=== PATIENT | male | born 1960 | race Caucasian/White ===

== ENCOUNTER 2016-07-12 15:35 | Emergency (ER) | payer BC ==
[2016-07-12 16:48] VITALS: BP 141/73
--- NOTE | 2016-07-12 16:51 | UC ---
Eye Complaint HPI - HPI Summary HPI Summary: "I've got a pink eye thin happening, I think." Nasal congestion, sore throat, and "generally not feeling well" for two days. Left eye crusting, discharge, erythema, and itching since this morning. Patient denies contact lens use or injury. Patient is self employed. PCP Marc. Green discharge throughout the day as well [ End ] - History of Current Complaint Chief Complaint: UCEye Stated Complaint: PINK EYE Time Seen by Provider: 07/12/16 16:49 Hx Obtained From: Patient Onset/Duration: Sudden Onset Timing: Constant Severity Initially: Mild Severity Currently: Mild Aggravating Factor(s): Nothing Alleviating Factor(s): Nothing Associated Signs And Symptoms: Positive: Drainage (Purulent) - Risk Factors Penetrating Injury Risk Factor: Negative Globe Rupture Risk Factors: Negative Acute Glaucoma Risk Factors: Negative - Allergies/Home Medications Allergies/Adverse Reactions: Allergies Allergy/AdvReac Type Severity Reaction Status Date / Time No Known Allergies Allergy Verified 07/12/16 16:42 PMH/Surg Hx/FS Hx/Imm Hx Previously Healthy: Yes Cardiovascular History Of: Reports: Cardiac Disorders - Dyslipidemia, Hypertension - Surgical History Surgical History: None - Social History Occupation: Employed Full-time Lives: With Family Alcohol Use: None Substance Use Type: None Smoking Status (MU): Never Smoked Tobacco - Immunization History Most Recent Influenza Vaccination: February 2016 Review of Systems Constitutional: Negative Skin: Negative Eyes: Drainage ENT: Negative Respiratory: Negative Cardiovascular: Negative Gastrointestinal: Negative Genitourinary: Negative Motor: Negative Neurovascular: Negative Musculoskeletal: Negative Neurological: Negative Psychological: Negative All Other Systems Reviewed And Are Negative: Yes Physical Exam Triage Information Reviewed: Yes Appearance: Well-Appearing, No Pain Distress, Well-Nourished Vital Signs: Initial Vital Signs Temp 98.4 F 07/12/16 16:40 Pulse 61 07/12/16 16:40 Resp 16 07/12/16 16:40 BP 141/73 07/12/16 16:40 Pulse Ox 97 07/12/16 16:40 Vital Signs Reviewed: Yes Eyes: Positive: Conjunctiva Inflamed, Discharge - right ENT Exam: Normal ENT: Positive: Normal ENT inspection, Hearing grossly normal, Pharynx normal Dental Exam: Normal Neck exam: Normal Respiratory Exam: Normal Cardiovascular Exam: Normal Musculoskeletal Exam: Normal Neurological Exam: Normal Psychological Exam: Normal Eye Complaint Course/Dx - Differential Dx/Diagnosis Differential Diagnosis/HQI/PQRI: Conjunctivitis Provider Diagnoses: Conjunctivitis Discharge - Discharge Plan Condition: Good Disposition: HOME Prescriptions: Polymyx/Trimethoprim OPTH* [Polytrim OPHTH*] 1 drop RIGHT EYE Q3H #1 btl Patient Education Materials: Conjunctivitis (ED) Referrals: Rosetta Jackson MD [Primary Care Provider] - 3 Days
== END 2016-07-12 17:10 | disposition home or self-care (01) ==
LOC: UCCORT 15:35
DX: H10.32 Unspecified acute conjunctivitis, left eye (principal)
CPT/HCPCS: 99202; G0463

== ENCOUNTER 2016-09-17 16:21 | Emergency (ER) | payer BC ==
[2016-09-17 16:53] VITALS: BP 137/75
--- NOTE | 2016-09-17 17:02 | UC ---
Respiratory Complaint HPI - History of Current Complaint Chief Complaint: UCGeneralIllness Stated Complaint: UPPER RESPIRATORY Time Seen by Provider: 09/17/16 16:55 Hx Obtained From: Patient Onset/Duration: Gradual Onset, Lasting Days - 12, Still Present Timing: Constant Character: Cough: Productive - initially green purulent but now no sputum Associated Signs And Symptoms: Positive: Dyspnea - at night with congestion and coughing., Fever, Wheezing, URI, Nasal Congestion, Hoarseness, Sinus Discomfort - Risk Factors Pulmonary Embolism Risk Factors: Negative Cardiac Risk Factors: Family History Pseudomonas Risk Factors: Negative Tuberculosis Risk Factors: Negative - Allergies/Home Medications Allergies/Adverse Reactions: Allergies Allergy/AdvReac Type Severity Reaction Status Date / Time No Known Allergies Allergy Verified 09/17/16 16:53 Home Medications: Home Medications Pseudoephedrine-Guaifenesin [Mucinex D 60-600 mg] 1 tab PO 09/17/16 [History] PMH/Surg Hx/FS Hx/Imm Hx Cardiovascular History Of: Reports: Cardiac Disorders - Dyslipidemia, Hypertension - Surgical History Surgical History: Yes Surgery Procedure, Year, and Place: LEFT TKA - Family History Known Family History: Positive: Cardiac Disease, Hypertension, Diabetes - Social History Occupation: Employed Full-time Lives: With Family Alcohol Use: Weekly Substance Use Type: None Smoking Status (MU): Never Smoked Tobacco Have You Smoked in the Last Year: No - Immunization History Most Recent Influenza Vaccination: February 2016 Review of Systems Constitutional: Fever Respiratory: Shortness Of Breath, Cough All Other Systems Reviewed And Are Negative: Yes Physical Exam Triage Information Reviewed: Yes Appearance: No Pain Distress, Well-Nourished, Ill-Appearing Vital Signs: Initial Vital Signs Temp 98 F 09/17/16 16:48 Pulse 64 09/17/16 16:48 Resp 16 09/17/16 16:48 BP 137/75 09/17/16 16:48 Pulse Ox 96 09/17/16 16:48 Vital Signs Reviewed: Yes Eyes: Positive: Conjunctiva Clear ENT: Positive: Pharynx normal, Nasal congestion, TMs normal Neck exam: Normal Neck: Positive: No Lymphadenopathy Respiratory: Positive: Wheezing - mild diffuse expiratory wheezes. Cardiovascular Exam: Normal Musculoskeletal Exam: Normal Neurological Exam: Normal Psychological Exam: Normal Skin Exam: Normal UC Diagnostic Evaluation - Laboratory O2 Sat by Pulse Oximetry: 96 Respiratory Course/Dx - Differential Dx/Diagnosis Differential Diagnosis/HQI/PQRI: Asthma, Lower Resp Infection, Sinusitis Provider Diagnoses: Acute URI. Acute bronchospasm Discharge - Discharge Plan Condition: Stable Disposition: HOME Prescriptions: Albuterol HFA INHALER* [Ventolin HFA Inhaler*] 2 puff INH Q4H PRN #1 mdi PRN Reason: Wheezing predniSONE TAB* [Deltasone TAB*] 20 mg PO DAILY #18 tab Patient Education Materials: Upper Respiratory Infection (ED), Bronchospasm (ED ), Prednisone (By mouth), How to Use a Metered-Dose Inhaler (ED)
== END 2016-09-17 17:22 | disposition home or self-care (01) ==
LOC: UCCORT 16:21
DX: J06.9 Acute upper respiratory infection, unspecified (principal); J98.01 Acute bronchospasm; E78.5 Hyperlipidemia, unspecified; I10 Essential (primary) hypertension
CPT/HCPCS: 99212; G0463

== ENCOUNTER 2019-07-03 12:13 | Emergency (ER) | payer BC ==
[2019-07-03 13:11] VITALS: BP 134/69
--- NOTE | 2019-07-03 13:32 | UC ---
Respiratory Complaint HPI - HPI Summary HPI Summary: 58-year-old male comes in with a chief complaint of cough. 2 weeks ago patient reports she had influenza-like illness with fevers chills and chest congestion. Since that time the fevers of gone but is continuing to have a cough. Coughing is worse when he gets exposed to cold air. In the past he's used Mucinex DM which did help with the cough. No history of asthma but he has used an albuterol inhaler before when his had bronchitis with bronchospasm. - History of Current Complaint Chief Complaint: UCRespiratory Stated Complaint: COUGH Time Seen by Provider: 07/03/19 13:16 Pain Intensity: 0 - Allergies/Home Medications Allergies/Adverse Reactions: Allergies Allergy/AdvReac Type Severity Reaction Status Date / Time No Known Allergies Allergy Verified 07/03/19 13:08 Home Medications: Home Medications Aspirin [Aspirin Adult Low Dose 81 MG] 81 mg PO DAILY 02/28/17 [History Confirmed 07/03/19] Atenolol TAB* [Tenormin TAB* 50 MG] 25 mg PO DAILY 02/28/17 [History Confirmed 07/03/19] Linagliptin (NF) [Tradjenta (NF)] 5 mg PO DAILY 02/28/17 [History Confirmed ] Rosuvastatin Calcium [Crestor] 20 mg PO DAILY 02/28/17 [History Confirmed ] glipiZIDE TAB.XL* [Glucotrol XL*] 10 mg PO DAILY 02/28/17 [History Confirmed ] lisinopriL [Prinivil TAB 20 mg] 20 mg PO DAILY 02/28/17 [History Confirmed 07/03] metFORMIN* [Glucophage 1000 MG TAB *] 1,000 mg PO BID 02/28/17 [History Confirmed 07/03/19] Albuterol HFA INHALER* [Ventolin HFA Inhaler*] 2 puff INH Q4H PRN #1 mdi [Rx] DOXYcycline CAP(*) [DOXYcycline 100MG CAP(*)] 100 mg PO BID #20 cap 07/03/19 [Rx ] PMH/Surg Hx/FS Hx/Imm Hx Previously Healthy: Yes Endocrine History: Diabetes, Dyslipidemia Cardiovascular History: Hypertension - Surgical History Surgical History: Yes Surgery Procedure, Year, and Place: LEFT TKA - Family History Known Family History: Positive: Cardiac Disease, Hypertension, Diabetes - Social History Alcohol Use: Occasionally Substance Use Type: None Smoking Status (MU): Never Smoked Tobacco Have You Smoked in the Last Year: No - Immunization History Most Recent Influenza Vaccination: February 2016 Review of Systems All Other Systems Reviewed And Are Negative: Yes Constitutional: Positive: Fever, Other - see hpi Skin: Positive: Negative Eyes: Positive: Negative ENT: Positive: Nasal Discharge Respiratory: Positive: Cough, Other - see hpi Cardiovascular: Positive: Negative Gastrointestinal: Positive: Negative Motor: Positive: Negative Neurovascular: Positive: Negative Musculoskeletal: Positive: Negative Neurological/Mental Status: Positive: Negative Psychological: Positive: Negative Is Patient Immunocompromised?: No Physical Exam Triage Information Reviewed: Yes Appearance: Well-Appearing, No Pain Distress Vital Signs: Initial Vital Signs Temp 98.5 F 07/03/19 13:08 Pulse 84 07/03/19 13:08 Resp 16 07/03/19 13:08 BP 134/69 07/03/19 13:08 Pulse Ox 97 07/03/19 13:08 Vital Signs Reviewed: Yes Eye Exam: Normal Eyes: Positive: Conjunctiva Clear ENT: Positive: Pharynx normal, Nasal drainage, TMs normal Neck: Positive: Supple Respiratory: Positive: No respiratory distress, Rhonchi Cardiovascular: Positive: RRR Musculoskeletal: Positive: Strength Intact, ROM Intact Neurological: Positive: Alert, Muscle Tone Normal Psychological: Positive: Age Appropriate Behavior Skin Exam: Normal Respiratory Course/Dx - Course Course Of Treatment: Discussed getting a chest x-ray with the patient. No chest x-ray at this time. Will consider chest x-ray if not improved. At this time the plan is to treat with antibiotics and albuterol inhaler and [id number] cough medicine and get reevaluated if not completely improved. - Differential Dx/Diagnosis Provider Diagnosis: Bronchitis with bronchospasm Discharge ED - Sign-Out/Discharge Documenting (check all that apply): Patient Departure All imaging exams completed and their final reports reviewed: No Studies - Discharge Plan Condition: Stable Disposition: HOME Prescriptions: Albuterol HFA INHALER* [Ventolin HFA Inhaler*] 2 puff INH Q4H PRN #1 mdi PRN Reason: Wheezing DOXYcycline CAP(*) [DOXYcycline 100MG CAP(*)] 100 mg PO BID #20 cap Patient Education Materials: Acute Bronchitis (ED), Bronchospasm (ED) Referrals: Herminio Tran MD [Primary Care Provider] - Additional Instructions: FOLLOW UP WITH YOUR DOCTOR IF NOT COMPLETELY IMPROVED. GET REEVALUATED SOONER IF NOT IMPROVED OR WORSE OR ANY QUESTIONS OR CONCERNS. - Billing Disposition and Condition Condition: STABLE Disposition: Home
== END 2019-07-03 13:39 | disposition home or self-care (01) ==
LOC: UCCORT 12:13
DX: J40 Bronchitis, not specified as acute or chronic (principal); J98.01 Acute bronchospasm; E11.9 Type 2 diabetes mellitus without complications; I10 Essential (primary) hypertension; E78.5 Hyperlipidemia, unspecified; Z79.82 Long term (current) use of aspirin; Z79.899 Other long term (current) drug therapy; Z79.84 Long term (current) use of oral hypoglycemic drugs
CPT/HCPCS: 99212; G0463